=== PATIENT | male | born 1960 | race Two or more races ===

== ENCOUNTER 2021-10-20 22:20 | Emergency (ER) | payer OTHER, MEDICAID ==
[~2021-10-20] VITALS: Ht 180.3 cm; Wt 96.2 kg
[2021-10-20 23:40] VITALS: BP 116/89
[2021-10-21] MEDS ORDERED: ALBUTEROL SULF 2.5 MG/0.5ML(0.5%) NEB SOLN NEB ONE ×2 (00:30)
[2021-10-21] MEDS ORDERED: IPRATROPIUM BROM 0.5 MG/2.5ML INH SOL NEB ONE ×2 (00:30)
[2021-10-21] MEDS ORDERED: PRED20TA2 PO (01:21)
[2021-10-21] MEDS ORDERED: ALBUAER3 IN (01:21)
[2021-10-21] MEDS ORDERED: predniSONE 20 MG TAB PO ONE (01:30)
== END 2021-10-21 01:50 | disposition home or self-care (01) ==
LOC: ER 22:23
DX: J45.901 Unspecified asthma with (acute) exacerbation (principal)
CPT/HCPCS: 71045; 94640; 99284; J7512; J7644